=== PATIENT | female | born 1980 | race Caucasian/White ===

== ENCOUNTER 2016-11-28 21:16 | Emergency (ER) | payer BC | END 2016-11-28 22:57 | disposition home or self-care (01) | LOC: ER 21:16 | DX: S89.392A Other physeal fracture of lower end of left fibula, initial encounter for closed fracture (principal); S93.601A Unspecified sprain of right foot, initial encounter; G43.909 Migraine, unspecified, not intractable, without status migrainosus; J45.909 Unspecified asthma, uncomplicated; Z79.82 Long term (current) use of aspirin; Z79.899 Other long term (current) drug therapy; W17.89XA Other fall from one level to another, initial encounter; Y92.009 Unspecified place in unspecified non-institutional (private) residence as the place of occurrence of the external cause ==

== ENCOUNTER 2016-12-19 10:04 | Emergency (ER) | payer BC | END 2016-12-19 10:47 | disposition home or self-care (01) | LOC: ER 10:04 | DX: K04.7 Periapical abscess without sinus (principal); J45.909 Unspecified asthma, uncomplicated; G43.909 Migraine, unspecified, not intractable, without status migrainosus; Z79.899 Other long term (current) drug therapy; Z88.1 Allergy status to other antibiotic agents; Z88.8 Allergy status to other drugs, medicaments and biological substances; Z91.012 Allergy to eggs ==

== ENCOUNTER 2017-02-23 18:26 | Inpatient (IN) | payer BC ==
[~2017-02-23] VITALS: Ht 167.6 cm
== END 2017-02-26 17:41 | disposition home or self-care (01) | DRG 872 ==
LOC: ER 18:26 → MED 22:42
PROVIDERS: ADMIT Internal Medicine
PROC: BT1DYZZ Fluoroscopy of Right Kidney, Ureter and Bladder using Other Contrast (ICD-10-PCS; principal; 2017-02-24)
PROC: 0T768DZ Dilation of Right Ureter with Intraluminal Device, Via Natural or Artificial Opening Endoscopic (ICD-10-PCS; 2017-02-24)
DX: A41.9 Sepsis, unspecified organism (principal); N13.6 Pyonephrosis; D72.829 Elevated white blood cell count, unspecified; E87.6 Hypokalemia; E83.42 Hypomagnesemia; B96.20 Unspecified Escherichia coli [E. coli] as the cause of diseases classified elsewhere; Z16.23 Resistance to quinolones and fluoroquinolones; Z88.2 Allergy status to sulfonamides; Z88.8 Allergy status to other drugs, medicaments and biological substances; Z90.49 Acquired absence of other specified parts of digestive tract; Z80.3 Family history of malignant neoplasm of breast; Z84.1 Family history of disorders of kidney and ureter
CPT/HCPCS: 36415; C1758; C2617; J0696; J1580; J1885; J2550; J2704; J2765; Q9967

== ENCOUNTER 2017-02-23 18:26 | Emergency (ER) | payer BC | END 2017-02-23 22:41 | disposition critical access hospital (66) | LOC: ER 18:26 | DX: N13.2 Hydronephrosis with renal and ureteral calculous obstruction (principal); J45.909 Unspecified asthma, uncomplicated; G43.909 Migraine, unspecified, not intractable, without status migrainosus; Z90.49 Acquired absence of other specified parts of digestive tract; Z87.442 Personal history of urinary calculi; Z79.899 Other long term (current) drug therapy; Z88.1 Allergy status to other antibiotic agents; Z91.012 Allergy to eggs; Z88.8 Allergy status to other drugs, medicaments and biological substances | CPT/HCPCS: 36415; 96361; 96374; 96375; 96376; J0696; J1885; J2550 ==